=== PATIENT | female | born 1995 | race American Indian/Alaskan Native ===

== ENCOUNTER 2017-08-08 11:49 | Outpatient (CLI) | payer MEDICAID ==
[2017-08-08 12:13] VITALS: BP 116/71
[2017-08-08] MEDS ORDERED: CELESTONE SOLUSPAN IM SCH (13:00)
== END 2017-08-08 13:00 | disposition home or self-care (01) ==
LOC: TRG 11:49
PROVIDERS: ATTEND Obstetrics & Gynecology
DX: O47.03 False labor before 37 completed weeks of gestation, third trimester (principal); Z3A.38 38 weeks gestation of pregnancy
CPT/HCPCS: 96372; J0702

== ENCOUNTER 2017-08-09 14:10 | Outpatient (CLI) | payer MEDICAID ==
[2017-08-09] MEDS ORDERED: CELESTONE SOLUSPAN IM NR (14:23)
== END 2017-08-09 14:54 | disposition home or self-care (01) ==
LOC: TRG 14:10
PROVIDERS: ATTEND Obstetrics & Gynecology
DX: O47.03 False labor before 37 completed weeks of gestation, third trimester (principal); Z3A.38 38 weeks gestation of pregnancy
CPT/HCPCS: 96372; J0702

== ENCOUNTER 2017-08-14 09:38 | Outpatient (CLI) | payer MEDICAID | END 2017-08-14 12:05 | disposition home or self-care (01) | LOC: LABHHL 09:38 → TRG 09:38 → LABHHL 11:31 → EDSTATUS 11:34 → TRG 12:05 | PROVIDERS: ATTEND Obstetrics & Gynecology | DX: O36.0130 Maternal care for anti-D [Rh] antibodies, third trimester, not applicable or unspecified (principal); Z3A.28 28 weeks gestation of pregnancy | CPT/HCPCS: 86850; 86900; 86901; 96372; J2790 ==

== ENCOUNTER 2017-09-19 13:51 | Outpatient (CLI) | payer MEDICAID ==
[2017-09-19 14:18] VITALS: BP 109/67
[2017-09-19] MEDS ORDERED: LACTATED RINGERS 500 ML IV ONE (14:22)
[2017-09-19] MEDS ORDERED: LACTATED RINGERS 1,000 ML IV SCH (15:00)
== END 2017-09-19 15:30 | disposition home or self-care (01) ==
LOC: TRG 13:51
PROVIDERS: ATTEND Obstetrics & Gynecology
DX: Z34.93 Encounter for supervision of normal pregnancy, unspecified, third trimester (principal); Z3A.34 34 weeks gestation of pregnancy
CPT/HCPCS: 59025; J7120